=== PATIENT | female | born 1970 | race Two or more races ===

== ENCOUNTER 2018-03-07 11:25 | Observation (INO) | payer OTHER ==
[~2018-03-07] VITALS: Ht 157.5 cm; Wt 85.4 kg
--- NOTE | 2018-03-07 11:58 | PHYS DOC ---
Past Medical History Past Medical History: No Pertinent History Past Surgical History: No Surgical History Additional Information: 1 PPD Alcohol Use: Heavy Additional Information: 1 PINT DAILY, LAST DRINK 5 DAYS AGO Drug Use: None Adult General Chief Complaint Chief Complaint: CHEST PAIN HPI HPI Patient is a 47 year old female who presents with epigastric pain. Patient is currently an inmate at [facility]. She presents to the ER today accompanied by guards for evaluation of epigastric pain. Patient describes right upper quadrant and epigastric pain which she has been having for over 1 month. Symptoms do not seem to be worse with eating. The patient does have a known prior history of ulcers 2 in the past. She does not have coronary artery disease history. There are no aggravating or alleviating factors. She has no shortness of breath. No recent fever, chills, cough. Patient is having ongoing pain during the interview. She'll also noted to have a systolic blood pressure of 211. The patient states she has been told in the past that she had high blood pressure but has never been started on medications. Review of Systems Review of Systems Constitutional: Denies fever Eyes: Denies change in visual acuity HENT: Denies nasal congestion Respiratory: Denies cough or shortness of breath Cardiovascular: No additional information not addressed in HPI GI: as documented above : Denies dysuria Musculoskeletal: some back pain that is chronic Integument: Denies rash Neurologic: Denies headache Endocrine: Denies polyuria All other systems were reviewed and found to be within normal limits, except as documented in this note. Current Medications Current Medications Current Medications Medications (Trade) Dose Ordered Sig/Sury Start Time Stop Time Status Last Admin Dose Admin Acetaminophen (Tylenol) 650 mg PRN Q4HRS PRN 03/07/18 15:45 03/08/18 15:44 Aspirin (Children'S Aspirin) 324 mg 1X ONCE 03/07/18 12:15 03/07/18 12:16 DC 03/07/18 12:30 324 MG Famotidine (Pepcid Vial) 20 mg 1X ONCE 03/07/18 12:00 03/07/18 12:01 DC 03/07/18 12:48 20 MG Morphine Sulfate (Morphine Sulfate) 4 mg PRN Q2HR PRN 03/07/18 15:45 03/08/18 15:44 Multi-Ingredient Mouthwash/Gargle (Gi Cocktail) 20 ml 1X ONCE 03/07/18 12:00 03/07/18 12:01 DC 03/07/18 12:30 20 ML Nitroglycerin (Nitrostat) 0.4 mg PRN Q5MIN PRN 03/07/18 15:45 03/08/18 15:44 Ondansetron HCl (Zofran) 4 mg PRN Q8HRS PRN 03/07/18 15:45 03/07/18 15:51 DC Allergies Allergies Allergies Coded Allergies Type Severity Reaction Last Updated Verified No Known Drug Allergies 03/07/18 No Physical Exam Physical Exam Constitutional: Well developed, well nourished, no acute distress, non-toxic appearance HENT: Normocephalic, atraumatic, bilateral external ears normal, oropharynx moist Eyes: PERRLA, EOMI, conjunctiva normal Neck: Normal range of motion, no tenderness Cardiovascular:Heart rate regular rhythm, no murmur Lungs & Thorax: Bilateral breath sounds clear to auscultation Abdomen: Bowel sounds normal, soft, no tenderness Skin: Warm, dry, no erythema, no rash Back: No tenderness Extremities: No edema Neurologic: Alert and oriented X 3 Psychologic: Affect normal Current Patient Data Vital Signs Vital Signs Date Time Temp Pulse Resp B/P (MAP) Pulse Ox O2 Delivery O2 Flow Rate FiO2 03/07/18 13:03 82 24 198/96 (130) 98 Room Air 03/07/18 11:28 98.7 98.7 Lab Values Laboratory Tests Test 03/07/18 12:44 03/07/18 15:18 White Blood Count 10.0 x10^3/uL (4.0-11.0) Red Blood Count 5.40 x10^6/uL (3.50-5.40) Hemoglobin 16.2 g/dL (12.0-15.5) H Hematocrit 47.4 % (36.0-47.0) H Mean Corpuscular Volume 88 fL (79-100) Mean Corpuscular Hemoglobin 30 pg (25-35) Mean Corpuscular Hemoglobin Concent 34 g/dL (31-37) Red Cell Distribution Width 13.5 % (11.5-14.5) Platelet Count 323 x10^3/uL (140-400) Neutrophils (%) (Auto) 70 % (31-73) Lymphocytes (%) (Auto) 24 % (24-48) Monocytes (%) (Auto) 4 % (0-9) Eosinophils (%) (Auto) 1 % (0-3) Basophils (%) (Auto) 1 % (0-3) Neutrophils # (Auto) 7.0 x10^3uL (1.8-7.7) Lymphocytes # (Auto) 2.4 x10^3/uL (1.0-4.8) Monocytes # (Auto) 0.4 x10^3/uL (0.0-1.1) Eosinophils # (Auto) 0.1 x10^3/uL (0.0-0.7) Basophils # (Auto) 0.1 x10^3/uL (0.0-0.2) Sodium Level 140 mmol/L (136-145) Potassium Level 3.6 mmol/L (3.5-5.1) Chloride Level 103 mmol/L (98-107) Carbon Dioxide Level 28 mmol/L (21-32) Anion Gap 9 (6-14) Blood Urea Nitrogen 10 mg/dL (7-20) Creatinine 0.9 mg/dL (0.6-1.0) Estimated GFR (Cockcroft-Gault) 67.4 Glucose Level 168 mg/dL (70-99) H Calcium Level 9.3 mg/dL (8.5-10.1) Total Bilirubin 0.4 mg/dL (0.2-1.0) Direct Bilirubin 0.1 mg/dL (0.0-0.2) Aspartate Amino Transferase (AST) 37 U/L (15-37) Alanine Aminotransferase (ALT) 61 U/L (14-59) H Alkaline Phosphatase 86 U/L (46-116) Troponin I Quantitative < 0.017 ng/mL (0.000-0.055) WQ-Ran-W-Type Natriuretic Peptide 253 pg/mL (0-124) H Total Protein 7.5 g/dL (6.4-8.2) Albumin 3.7 g/dL (3.4-5.0) Lipase 165 U/L (73-393) Urine Collection Type Unknown Urine Color Yellow Urine Clarity Clear Urine pH 6.0 Urine Specific [place] 1.020 Urine Protein Negative mg/dL (NEG-TRACE) Urine Glucose (UA) Negative mg/dL (NEG) Urine Ketones (Stick) Negative mg/dL (NEG) Urine Blood Negative (NEG) Urine Nitrite Negative (NEG) Urine Bilirubin Negative (NEG) Urine Urobilinogen Dipstick 0.2 mg/dL (0.2 mg/dL) Urine Leukocyte Esterase Trace (NEG) Urine RBC 0 /HPF (0-2) Urine WBC 1-4 /HPF (0-4) Urine Squamous Epithelial Cells Mod /LPF Urine Bacteria Mod /HPF (0-FEW) Urine Mucus Mod /LPF Urine Trichomonas Present Laboratory Tests 03/07/18 12:44 Laboratory Tests 18 12:44 EKG EKG No STEMI Interpretation Time: 11:40 Radiology/Procedures Radiology/Procedures CXR: negative for acute findings RUQ US: FINDINGS:Pancreas is not visualized during bowel gas. IVC and aorta not visualized during bowel gas. Suboptimal visualization of liver which is enlarged measuring 18 cm with diffusely increased echogenicity and decreased through transmission. No gallstones, pericholecystic fluid or gallbladder wall thickening. CBD measures 3 mm in diameter and is within normal limits. Right kidney measures 10.8 cm in length without hydronephrosis. IMPRESSION: Suboptimal exam due to overlapping bowel gas. 1. No cholelithiasis or sonographic evidence of acute cholecystitis. 2. Mild hepatomegaly with hepatic steatosis. Course & Med Decision Making Course & Med Decision Making Pertinent Labs and Imaging studies reviewed. (See chart for details) 11:50: Patient is seen and examined. No acute distress. + mild upper abdomen and RUQ TTP. Abd labs with trop and RUQ US ordered. Pepcid, GI cocktail. EKG noted to have inverted T waves in lateral leads. ASA ordered. Patient was evaluated in the ER for chest pain. She was given a dose of morphine. Her pain did improve. She does not have known coronary artery disease. Her pain has been for several weeks and this is a patient who likely could be ruled out with a three-hour delta troponin. That said, her EKG was notable for diffuse T-wave inversions. Because of this, decision is made to admit the patient to trend troponins and request cardiology evaluation. The patient has never undergone stress testing in the past. She was given an aspirin in the ER. She had a secondary complaint of back pain which is acute on chronic and not new. Patient is from [facility] and is accompanied by a guard personnel. Chris Disclaimer Dragon Disclaimer This electronic medical record was generated, in whole or in part, using a voice recognition dictation system. Departure Departure Disposition: 09 ADMITTED INPATIENT Condition: GENARO HIDALGO DO Mar 07, 2018 11:58
[2018-03-07] MEDS ORDERED: LIDO:MAALOX 1:1 20 ML SINGLE DOSE. PO ONE (12:00)
[2018-03-07] MEDS ORDERED: FAMOTIDINE 20 MG/2 ML VIAL IVP ONE (12:00)
--- NOTE | 2018-03-07 12:10 | RAD ---
PROCEDURE: PORTABLE CHEST 1V CLINICAL INDICATION: BILATERAL CHEST PAIN, SOA X1 MONTH COMPARISON: None FINDINGS: No pneumothorax identified. Cardiac and mediastinal contours unremarkable. No pulmonary consolidation or acute airspace disease. No acute osseous abnormalities identified. IMPRESSION: No pulmonary consolidation or acute airspace disease. Electronically signed by: Orlin Cam DO (03/07/2018 12:06 PM) [facility]
[2018-03-07] MEDS ORDERED: ASPIRIN CHEWABLE 81 MG TABLET. PO ONE (12:15)
--- NOTE | 2018-03-07 12:18 | EKG ---
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
--- NOTE | 2018-03-07 12:37 | RAD ---
Indication:ruq/epigastric pain TECHNIQUE: Grayscale, color Doppler and spectral waveform is of the abdomen obtained. COMPARISON:None FINDINGS:Pancreas is not visualized during bowel gas. IVC and aorta not visualized during bowel gas. Suboptimal visualization of liver which is enlarged measuring 18 cm with diffusely increased echogenicity and decreased through transmission. No gallstones, pericholecystic fluid or gallbladder wall thickening. CBD measures 3 mm in diameter and is within normal limits. Right kidney measures 10.8 cm in length without hydronephrosis. IMPRESSION: Suboptimal exam due to overlapping bowel gas. 1. No cholelithiasis or sonographic evidence of acute cholecystitis. 2. Mild hepatomegaly with hepatic steatosis. Electronically signed by: Orlin Cam DO (03/07/2018 12:34 PM) [facility]
[2018-03-07 12:56] LABS: BASO # 0.1 x10^3/uL (0.0-0.2); BASO % 1 % (0-3); EOS # 0.1 x10^3/uL (0.0-0.7); EOS % 1 % (0-3); HEMATOCRIT 47.4 % (36.0-47.0); HEMOGLOBIN 16.2 g/dL (12.0-15.5); LYMPH # 2.4 x10^3/uL (1.0-4.8); LYMPH % 24 % (24-48); MEAN CORPUSCULAR HEMOGLOBIN 30 pg (25-35); MEAN CORPUSCULAR HGB CONC 34 g/dL (31-37); MEAN CORPUSCULAR VOLUME 88 fL (79-100); MONO # 0.4 x10^3/uL (0.0-1.1); MONO % 4 % (0-9); NEUT % 70 % (31-73); PLATELET COUNT 323 x10^3/uL (140-400); RED CELL DISTRIBUTION WIDTH 13.5 % (11.5-14.5)
[2018-03-07 13:08] LABS: CALCIUM 9.3 mg/dL (8.5-10.1); CREATININE 0.9 mg/dL (0.6-1.0); GFR 67.4; POTASSIUM 3.6 mmol/L (3.5-5.1)
[2018-03-07 13:12] LABS: ALBUMIN 3.7 g/dL (3.4-5.0); DIRECT BILIRUBIN 0.1 mg/dL (0.0-0.2); TOTAL BILIRUBIN 0.4 mg/dL (0.2-1.0); TOTAL PROTEIN 7.5 g/dL (6.4-8.2)
[2018-03-07] MEDS ORDERED: MORPHINE SULFATE 4 MG/ML VIAL. IV ONE (14:00)
[2018-03-07 15:29] LABS: BILIRUBIN,URINE NEGATIVE (NEG); CLARITY,URINE CLEAR; COLOR,URINE YELLOW; NITRITE,URINE NEGATIVE (NEG); PROTEIN,URINE NEGATIVE (NEG-TRACE); UROBILINOGEN,URINE 0.2 mg/dL (0.2 mg/dL)
[2018-03-07 15:39] LABS: RBC,URINE 0 /HPF (0-2)
[2018-03-07 15:40] LABS: BACTERIA,URINE MOD /HPF (0-FEW); SQUAMOUS EPITHELIAL CELL,UR MOD /LPF; TRICHOMONAS,URINE PRESENT
[2018-03-07] MEDS ORDERED: NITROGLYCERIN SUBLINGUAL 0.4 MG BOTTLE OF 25. SL PRN (15:45)
[2018-03-07] MEDS ORDERED: ONDANSETRON PF 4 MG/2 ML VIAL. IV PRN (15:45)
--- NOTE | 2018-03-07 18:13 | EKG ---
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
[2018-03-07 18:28] VITALS: BP 180/99
[2018-03-07 19:30] VITALS: BP 185/109
--- NOTE | 2018-03-07 19:35 | HP ---
ADMIT DATE: 03/07/2018 CHIEF COMPLAINT: Chest pain. HISTORY OF PRESENT ILLNESS: The patient is a pleasant 47-year-old female who is incarcerated. She does drugs. She drinks too much as well. She presents with chest pain from the [facility], rated at 9/10, worse with moving, better with sitting still. They gave her some extra medicine there, but it did not seem to help. Describes it as agonizing. I have discussed the case with ER physician. We are going to admit the patient and consult Cardiology. PAST MEDICAL HISTORY: Tobacco abuse and drug abuse and alcohol abuse. ALLERGIES: None. FAMILY HISTORY: Coronary artery disease. SOCIAL HISTORY: She drinks and smokes. She does do drugs too. MEDICATIONS: Reviewed. REVIEW OF SYSTEMS: GENERAL: No history of weight change, weakness or fevers. SKIN: No bruising, hair changes or rashes. EYES: No blurred, double or loss of vision. NOSE AND THROAT: No history of nosebleeds, hoarseness or sore throat. HEART: She complains of chest pain. LUNGS: Denies cough, hemoptysis, wheezing or shortness of breath. GASTROINTESTINAL: Denies changes in appetite, nausea, vomiting, diarrhea or constipation. GENITOURINARY: No history of frequency, urgency, hesitancy or nocturia. NEUROLOGIC: Denies history of numbness, tingling, tremor or weakness. PSYCHIATRIC: No history of panic, anxiety or depression. ENDOCRINE: No history of heat or cold intolerance, polyuria or polydipsia. EXTREMITIES: Denies muscle weakness, joint pain, pain on walking or stiffness. PHYSICAL EXAMINATION: VITAL SIGNS: Temperature 98, pulse 87, respirations 18, blood pressure 180/90. GENERAL: She is alert, cooperative. HEART: Distant S1, S2. LUNGS: Clear, but diminished. ABDOMEN: Soft, positive bowel sounds. EXTREMITIES: Trace edema. SKIN: No rashes. ENDOCRINE: No thyromegaly. LYMPHATICS: No cervical nodes. HEMATOPOIETIC: No bruising. PSYCHIATRIC: She is stable. LABORATORY DATA: Electrolytes are normal other than a glucose of 168, ALT is a little high at 61. BNP 253. ASSESSMENT AND PLAN: Chest pain, rule out coronary artery disease. The patient is being admitted. We will check serial enzymes, serial EKGs, cardiac monitoring. Consult Dr. Dozier. PT, OT, frequent labs. PROGNOSIS: Guarded. NIAL Zachary CHAPA DO DR: Charlie JOB#: [id number] / [id number]
[2018-03-07] MEDS: hydrALAZINE 20 MG/ML VIAL. IVP PRN (19:43)
[2018-03-07] MEDS: MORPHINE SULFATE 4 MG/ML VIAL. IV PRN (19:44)
[2018-03-07] MEDS: ACETAMINOPHEN 325 MG TABLET. PO PRN (23:19)
[2018-03-07 23:39] VITALS: BP 176/98
[2018-03-08 03:55] VITALS: BP 189/110
[2018-03-08] MEDS: hydrALAZINE 20 MG/ML VIAL. IVP PRN ×3 (04:05→20:16)
[2018-03-08 04:52] LABS: BASO # 0.1 x10^3/uL (0.0-0.2); BASO % 1 % (0-3); EOS # 0.2 x10^3/uL (0.0-0.7); EOS % 2 % (0-3); HEMATOCRIT 45.3 % (36.0-47.0); HEMOGLOBIN 15.3 g/dL (12.0-15.5); LYMPH # 2.6 x10^3/uL (1.0-4.8); LYMPH % 28 % (24-48); MEAN CORPUSCULAR HEMOGLOBIN 30 pg (25-35); MEAN CORPUSCULAR HGB CONC 34 g/dL (31-37); MEAN CORPUSCULAR VOLUME 88 fL (79-100); MONO # 0.6 x10^3/uL (0.0-1.1); MONO % 6 % (0-9); NEUT % 63 % (31-73); PLATELET COUNT 331 x10^3/uL (140-400); RED BLOOD COUNT 5.14 x10^6/uL (3.50-5.40); RED CELL DISTRIBUTION WIDTH 13.5 % (11.5-14.5); WHITE BLOOD COUNT 9.4 x10^3/uL (4.0-11.0)
[2018-03-08 05:09] LABS: GFR 59.7; POTASSIUM 3.5 mmol/L (3.5-5.1)
[2018-03-08] MEDS: ACETAMINOPHEN 325 MG TABLET. PO PRN ×3 (05:24→20:15)
[2018-03-08 07:00] VITALS: BP 177/79
[2018-03-08 10:23] VITALS: BP 190/98
[2018-03-08] MEDS: MORPHINE SULFATE 4 MG/ML VIAL. IV PRN (12:50)
--- NOTE | 2018-03-08 13:26 | PDOC ---
PROGRESS NOTES Chief Complaint Chief Complaint CP UTI History of Present Illness History of Present Illness PT seen and examined, spoke with nursing staff. Pt is incarcerated and being seen for CP with pain at 11/24. Pt has a Fhx of CAD. Pt is a current smoker. Pt also uses illicit drugs and drinks EtOH. Pt reports "I promise I will quit". Pt also has trichomoniasis with moderate bacteria found in urine. Vitals Vitals Vital Signs Date Time Temp Pulse Resp B/P (MAP) Pulse Ox O2 Delivery O2 Flow Rate FiO2 03/08/18 13:14 18 96 Room Air 03/08/18 10:29 190/98 03/08/18 10:23 98.4 101 98.4 Physical Exam General: Oriented X3, Cooperative, mild distress Heart: Regular rate, No murmurs Lungs: Clear Abdomen: Normal bowel sounds Extremities: No clubbing, No cyanosis, No edema, Normal pulses, No tenderness/ swelling Labs LABS Laboratory Tests Test 03/07/18 15:18 03/07/18 19:48 03/07/18 23:00 03/08/18 04:30 Urine Collection Type Unknown Urine Color Yellow Urine Clarity Clear Urine pH 6.0 Urine Specific [place] 1.020 Urine Protein Negative mg/dL (NEG-TRACE) Urine Glucose (UA) Negative mg/dL (NEG) Urine Ketones (Stick) Negative mg/dL (NEG) Urine Blood Negative (NEG) Urine Nitrite Negative (NEG) Urine Bilirubin Negative (NEG) Urine Urobilinogen Dipstick 0.2 mg/dL (0.2 mg/dL) Urine Leukocyte Esterase Trace (NEG) Urine RBC 0 /HPF (0-2) Urine WBC 1-4 /HPF (0-4) Urine Squamous Epithelial Cells Mod /LPF Urine Bacteria Mod /HPF (0-FEW) Urine Mucus Mod /LPF Urine Trichomonas Present Troponin I Quantitative < 0.017 ng/mL (0.000-0.055) 0.079 ng/mL (0.000-0.055) White Blood Count 9.4 x10^3/uL (4.0-11.0) Red Blood Count 5.14 x10^6/uL (3.50-5.40) Hemoglobin 15.3 g/dL (12.0-15.5) Hematocrit 45.3 % (36.0-47.0) Mean Corpuscular Volume 88 fL (79-100) Mean Corpuscular Hemoglobin 30 pg (25-35) Mean Corpuscular Hemoglobin Concent 34 g/dL (31-37) Red Cell Distribution Width 13.5 % (11.5-14.5) Platelet Count 331 x10^3/uL (140-400) Neutrophils (%) (Auto) 63 % (31-73) Lymphocytes (%) (Auto) 28 % (24-48) Monocytes (%) (Auto) 6 % (0-9) Eosinophils (%) (Auto) 2 % (0-3) Basophils (%) (Auto) 1 % (0-3) Neutrophils # (Auto) 6.0 x10^3uL (1.8-7.7) Lymphocytes # (Auto) 2.6 x10^3/uL (1.0-4.8) Monocytes # (Auto) 0.6 x10^3/uL (0.0-1.1) Eosinophils # (Auto) 0.2 x10^3/uL (0.0-0.7) Basophils # (Auto) 0.1 x10^3/uL (0.0-0.2) Sodium Level 138 mmol/L (136-145) Potassium Level 3.5 mmol/L (3.5-5.1) Chloride Level 101 mmol/L (98-107) Carbon Dioxide Level 27 mmol/L (21-32) Anion Gap 10 (6-14) Blood Urea Nitrogen 14 mg/dL (7-20) Creatinine 1.0 mg/dL (0.6-1.0) Estimated GFR (Cockcroft-Gault) 59.7 Glucose Level 119 mg/dL (70-99) Calcium Level 9.0 mg/dL (8.5-10.1) Review of Systems Review of Systems Reports CP Denies SOB Denies N/V Assessment and Plan Assessmemt and Plan Assessment: CP UTI Plan: Keep tomorrow for a cardiac stress test Cardiac monitoring Serial EKGs Serial Enzymes d/c disposition pending with cardiology approval Comment Review of Relevant I have reviewed the following items triston (where applicable) has been applied. Labs Laboratory Tests Test 03/07/18 12:44 03/07/18 15:18 03/07/18 19:48 03/07/18 23:00 White Blood Count 10.0 x10^3/uL (4.0-11.0) Red Blood Count 5.40 x10^6/uL (3.50-5.40) Hemoglobin 16.2 g/dL (12.0-15.5) Hematocrit 47.4 % (36.0-47.0) Mean Corpuscular Volume 88 fL (79-100) Mean Corpuscular Hemoglobin 30 pg (25-35) Mean Corpuscular Hemoglobin Concent 34 g/dL (31-37) Red Cell Distribution Width 13.5 % (11.5-14.5) Platelet Count 323 x10^3/uL (140-400) Neutrophils (%) (Auto) 70 % (31-73) Lymphocytes (%) (Auto) 24 % (24-48) Monocytes (%) (Auto) 4 % (0-9) Eosinophils (%) (Auto) 1 % (0-3) Basophils (%) (Auto) 1 % (0-3) Neutrophils # (Auto) 7.0 x10^3uL (1.8-7.7) Lymphocytes # (Auto) 2.4 x10^3/uL (1.0-4.8) Monocytes # (Auto) 0.4 x10^3/uL (0.0-1.1) Eosinophils # (Auto) 0.1 x10^3/uL (0.0-0.7) Basophils # (Auto) 0.1 x10^3/uL (0.0-0.2) Sodium Level 140 mmol/L (136-145) Potassium Level 3.6 mmol/L (3.5-5.1) Chloride Level 103 mmol/L (98-107) Carbon Dioxide Level 28 mmol/L (21-32) Anion Gap 9 (6-14) Blood Urea Nitrogen 10 mg/dL (7-20) Creatinine 0.9 mg/dL (0.6-1.0) Estimated GFR (Cockcroft-Gault) 67.4 Glucose Level 168 mg/dL (70-99) Calcium Level 9.3 mg/dL (8.5-10.1) Total Bilirubin 0.4 mg/dL (0.2-1.0) Direct Bilirubin 0.1 mg/dL (0.0-0.2) Aspartate Amino Transf (AST/SGOT) 37 U/L (15-37) Alanine Aminotransferase (ALT/SGPT) 61 U/L (14-59) Alkaline Phosphatase 86 U/L (46-116) Troponin I Quantitative < 0.017 ng/mL (0.000-0.055) < 0.017 ng/mL (0.000-0.055) 0.079 ng/mL (0.000-0.055) IK-Qpx-P-Type Natriuretic Peptide 253 pg/mL (0-124) Total Protein 7.5 g/dL (6.4-8.2) Albumin 3.7 g/dL (3.4-5.0) Lipase 165 U/L (73-393) Urine Collection Type Unknown Urine Color Yellow Urine Clarity Clear Urine pH 6.0 Urine Specific [place] 1.020 Urine Protein Negative mg/dL (NEG-TRACE) Urine Glucose (UA) Negative mg/dL (NEG) Urine Ketones (Stick) Negative mg/dL (NEG) Urine Blood Negative (NEG) Urine Nitrite Negative (NEG) Urine Bilirubin Negative (NEG) Urine Urobilinogen Dipstick 0.2 mg/dL (0.2 mg/dL) Urine Leukocyte Esterase Trace (NEG) Urine RBC 0 /HPF (0-2) Urine WBC 1-4 /HPF (0-4) Urine Squamous Epithelial Cells Mod /LPF Urine Bacteria Mod /HPF (0-FEW) Urine Mucus Mod /LPF Urine Trichomonas Present Test 03/08/18 04:30 White Blood Count 9.4 x10^3/uL (4.0-11.0) Red Blood Count 5.14 x10^6/uL (3.50-5.40) Hemoglobin 15.3 g/dL (12.0-15.5) Hematocrit 45.3 % (36.0-47.0) Mean Corpuscular Volume 88 fL (79-100) Mean Corpuscular Hemoglobin 30 pg (25-35) Mean Corpuscular Hemoglobin Concent 34 g/dL (31-37) Red Cell Distribution Width 13.5 % (11.5-14.5) Platelet Count 331 x10^3/uL (140-400) Neutrophils (%) (Auto) 63 % (31-73) Lymphocytes (%) (Auto) 28 % (24-48) Monocytes (%) (Auto) 6 % (0-9) Eosinophils (%) (Auto) 2 % (0-3) Basophils (%) (Auto) 1 % (0-3) Neutrophils # (Auto) 6.0 x10^3uL (1.8-7.7) Lymphocytes # (Auto) 2.6 x10^3/uL (1.0-4.8) Monocytes # (Auto) 0.6 x10^3/uL (0.0-1.1) Eosinophils # (Auto) 0.2 x10^3/uL (0.0-0.7) Basophils # (Auto) 0.1 x10^3/uL (0.0-0.2) Sodium Level 138 mmol/L (136-145) Potassium Level 3.5 mmol/L (3.5-5.1) Chloride Level 101 mmol/L (98-107) Carbon Dioxide Level 27 mmol/L (21-32) Anion Gap 10 (6-14) Blood Urea Nitrogen 14 mg/dL (7-20) Creatinine 1.0 mg/dL (0.6-1.0) Estimated GFR (Cockcroft-Gault) 59.7 Glucose Level 119 mg/dL (70-99) Calcium Level 9.0 mg/dL (8.5-10.1) Laboratory Tests Test 03/07/18 15:18 03/07/18 19:48 03/07/18 23:00 03/08/18 04:30 Urine Collection Type Unknown Urine Color Yellow Urine Clarity Clear Urine pH 6.0 Urine Specific [place] 1.020 Urine Protein Negative mg/dL (NEG-TRACE) Urine Glucose (UA) Negative mg/dL (NEG) Urine Ketones (Stick) Negative mg/dL (NEG) Urine Blood Negative (NEG) Urine Nitrite Negative (NEG) Urine Bilirubin Negative (NEG) Urine Urobilinogen Dipstick 0.2 mg/dL (0.2 mg/dL) Urine Leukocyte Esterase Trace (NEG) Urine RBC 0 /HPF (0-2) Urine WBC 1-4 /HPF (0-4) Urine Squamous Epithelial Cells Mod /LPF Urine Bacteria Mod /HPF (0-FEW) Urine Mucus Mod /LPF Urine Trichomonas Present Troponin I Quantitative < 0.017 ng/mL (0.000-0.055) 0.079 ng/mL (0.000-0.055) White Blood Count 9.4 x10^3/uL (4.0-11.0) Red Blood Count 5.14 x10^6/uL (3.50-5.40) Hemoglobin 15.3 g/dL (12.0-15.5) Hematocrit 45.3 % (36.0-47.0) Mean Corpuscular Volume 88 fL (79-100) Mean Corpuscular Hemoglobin 30 pg (25-35) Mean Corpuscular Hemoglobin Concent 34 g/dL (31-37) Red Cell Distribution Width 13.5 % (11.5-14.5) Platelet Count 331 x10^3/uL (140-400) Neutrophils (%) (Auto) 63 % (31-73) Lymphocytes (%) (Auto) 28 % (24-48) Monocytes (%) (Auto) 6 % (0-9) Eosinophils (%) (Auto) 2 % (0-3) Basophils (%) (Auto) 1 % (0-3) Neutrophils # (Auto) 6.0 x10^3uL (1.8-7.7) Lymphocytes # (Auto) 2.6 x10^3/uL (1.0-4.8) Monocytes # (Auto) 0.6 x10^3/uL (0.0-1.1) Eosinophils # (Auto) 0.2 x10^3/uL (0.0-0.7) Basophils # (Auto) 0.1 x10^3/uL (0.0-0.2) Sodium Level 138 mmol/L (136-145) Potassium Level 3.5 mmol/L (3.5-5.1) Chloride Level 101 mmol/L (98-107) Carbon Dioxide Level 27 mmol/L (21-32) Anion Gap 10 (6-14) Blood Urea Nitrogen 14 mg/dL (7-20) Creatinine 1.0 mg/dL (0.6-1.0) Estimated GFR (Cockcroft-Gault) 59.7 Glucose Level 119 mg/dL (70-99) Calcium Level 9.0 mg/dL (8.5-10.1) Medications Current Medications Famotidine (Pepcid Vial) 20 mg 1X ONCE IVP Last administered on 03/07/18at 12: 48; Start 03/07/18 at 12:00; Stop 03/07/18 at 12:01; Status DC Multi-Ingredient Mouthwash/Gargle (Gi Cocktail) 20 ml 1X ONCE PO Last administered on 03/07/18at 12:30; Start 03/07/18 at 12:00; Stop 03/07/18 at 12 :01; Status DC Aspirin (Children'S Aspirin) 324 mg 1X ONCE PO Last administered on at 12:30; Start 03/07/18 at 12:15; Stop 03/07/18 at 12:16; Status DC Morphine Sulfate (Morphine Sulfate) 6 mg 1X ONCE IV Last administered on 03/07at 15:24; Start 03/07/18 at 14:00; Stop 03/07/18 at 14:01; Status DC Ondansetron HCl (Zofran) 4 mg PRN Q8HRS PRN IV NAUSEA/VOMITING; Start at 15:45; Stop 03/07/18 at 15:51; Status DC Morphine Sulfate (Morphine Sulfate) 4 mg PRN Q2HR PRN IV PAIN Last administered on 03/08/18at 12:50; Start 03/07/18 at 15:45; Stop 03/08/18 at 15 :44 Acetaminophen (Tylenol) 650 mg PRN Q4HRS PRN PO FEVER Last administered on at 12:50; Start 03/07/18 at 15:45; Stop 03/08/18 at 15:44 Nitroglycerin (Nitrostat) 0.4 mg PRN Q5MIN PRN SL CHEST PAIN; Start 03/07/18 at 15:45; Stop 03/08/18 at 15:44 Hydralazine HCl (Apresoline Inj) 10 mg PRN Q8HRS PRN IVP ELEVATED BP, SEE COMMENTS Last administered on 03/08/18at 10:29; Start 03/07/18 at 18:00 Vitals/I & O Vital Sign - Last 24 Hours 03/07/18 03/07/18 03/07/18 03/07/18 13:33 14:03 14:33 15:19 Pulse 78 78 78 Resp 20 24 20 B/P (MAP) 211/129 (156) 216/121 (152) 191/89 (123) 193/120 (144) Pulse Ox 98 96 98 O2 Delivery Room Air Room Air Room Air Room Air 12/22/18 12/22/18 12/22/18 12/22/18 15:49 15:54 16:19 16:49 Pulse 80 80 102 Resp 22 22 B/P (MAP) 206/114 (144) 202/110 (140) 219/125 (156) Pulse Ox 96 96 94 96 O2 Delivery Room Air Room Air Room Air Room Air 03/07/18 03/07/18 03/07/18 03/07/18 17:19 17:35 17:49 18:28 Temp 98.7 98.7 Pulse 110 82 88 87 Resp B/P (MAP) 243/143 (176) 182/99 (126) 180/102 (128) 180/99 (126) Pulse Ox 95 97 97 96 O2 Delivery Room Air Room Air Room Air Room Air 03/07/18 03/07/18 03/07/18 03/07/18 19:30 19:43 19:44 20:00 Temp 98.0 98.0 Pulse 80 87 Resp B/P (MAP) 185/109 (134) 180/99 Pulse Ox 96 O2 Delivery Room Air Room Air Room Air 03/07/18 03/08/18 03/08/18 03/08/18 23:39 03:55 04:05 07:00 Temp 98.0 98.5 98.5 98.0 98.5 98.5 Pulse 120 103 113 Resp B/P (MAP) 176/98 (124) 189/110 (136) 189/110 177/79 (111) Pulse Ox 99 97 98 O2 Delivery Room Air Room Air Room Air 03/08/18 03/08/18 03/08/18 03/08/18 07:54 10:23 10:29 12:50 Temp 98.4 98.4 Pulse 101 Resp 18 B/P (MAP) 190/98 (128) 190/98 Pulse Ox 96 96 O2 Delivery Room Air Room Air Room Air 03/08/18 13:14 Resp 18 Pulse Ox 96 O2 Delivery Room Air Intake and Output 03/07/18 03/07/18 03/08/18 15:01 23:01 07:01 Intake Total 360 ml Balance 360 ml JUWAN CHAPA III DO Mar 08, 2018 13:26
[2018-03-08 14:26] VITALS: BP 177/70
--- NOTE | 2018-03-08 17:26 | PDOC2 ---
CONSULT Date of Consult Date of Consult DATE: 03/08/18 TIME: 17:19 Reason for Consult Reason for Consult: Chest pain Referring Physician Referring Physician: Dr. Zimmer Identification/Chief Complaint Chief Complaint Abdominal and chest pain Source Source: Patient History of Present Illness Reason for Visit: The patient is a 47-year-old female who reported several days of upper abdominal and chest discomfort. This has been present for over a month but has increased in the last several days. She does have a history of peptic ulcer disease with his been largely untreated recently. Her EKG shows a sinus rhythm with nonspecific ST-T wave changes. 2 troponins were normal but for with minimally elevated 0.079. Patient also was severely hypertensive on admission with a systolic pressure of 211. Ultrasound of the abdomen shows mild hepatomegaly. Chest x-ray shows no acute changes. The patient is more comfortable today. Past Medical History Cardiovascular: HTN Pulmonary: COPD GI: Peptic Ulcer disease Past Surgical History Past Surgical History: No pertinent history Family History Family History: Heart Disease Social History Social History The patient is an inmate at one of the local jails. 1 pack per day ALCOHOL: heavy Drugs: Other Current Problem List Problem List Problems Medical Problems: (1) Chest pain Status: Acute (2) Hypertension Status: Acute Current Medications Current Medications Current Medications Famotidine (Pepcid Vial) 20 mg 1X ONCE IVP Last administered on 03/07/18at 12: 48; Start 03/07/18 at 12:00; Stop 03/07/18 at 12:01; Status DC Multi-Ingredient Mouthwash/Gargle (Gi Cocktail) 20 ml 1X ONCE PO Last administered on 03/07/18at 12:30; Start 03/07/18 at 12:00; Stop 03/07/18 at 12 :01; Status DC Aspirin (Children'S Aspirin) 324 mg 1X ONCE PO Last administered on at 12:30; Start 03/07/18 at 12:15; Stop 03/07/18 at 12:16; Status DC Morphine Sulfate (Morphine Sulfate) 6 mg 1X ONCE IV Last administered on 03/07at 15:24; Start 03/07/18 at 14:00; Stop 03/07/18 at 14:01; Status DC Ondansetron HCl (Zofran) 4 mg PRN Q8HRS PRN IV NAUSEA/VOMITING; Start at 15:45; Stop 03/07/18 at 15:51; Status DC Morphine Sulfate (Morphine Sulfate) 4 mg PRN Q2HR PRN IV PAIN Last administered on 03/08/18at 12:50; Start 03/07/18 at 15:45; Stop 03/08/18 at 15 :44; Status DC Acetaminophen (Tylenol) 650 mg PRN Q4HRS PRN PO FEVER Last administered on at 12:50; Start 03/07/18 at 15:45; Stop 03/08/18 at 15:44; Status DC Nitroglycerin (Nitrostat) 0.4 mg PRN Q5MIN PRN SL CHEST PAIN; Start 03/07/18 at 15:45; Stop 03/08/18 at 15:44; Status DC Hydralazine HCl (Apresoline Inj) 10 mg PRN Q8HRS PRN IVP ELEVATED BP, SEE COMMENTS Last administered on 03/08/18at 10:29; Start 03/07/18 at 18:00 Allergies Allergies: Coded Allergies: No Known Drug Allergies (Unverified , 03/07/18) ROS Cardiovascular: yes Chest Pain Gastrointestinal: Yes Abdominal Pain Physical Exam General: mild distress HEENT: Atraumatic Lungs: Clear to auscultation Heart: Regular rate Abdomen: Normal bowel sounds Vitals VITALS Vital Signs Date Time Temp Pulse Resp B/P (MAP) Pulse Ox O2 Delivery O2 Flow Rate FiO2 03/08/18 14:26 98.3 112 20 177/70 (105) 98 Room Air 98.3 Labs Labs Laboratory Tests Test 03/07/18 12:44 03/07/18 15:18 03/07/18 19:48 03/07/18 23:00 White Blood Count 10.0 x10^3/uL (4.0-11.0) Red Blood Count 5.40 x10^6/uL (3.50-5.40) Hemoglobin 16.2 g/dL (12.0-15.5) Hematocrit 47.4 % (36.0-47.0) Mean Corpuscular Volume 88 fL (79-100) Mean Corpuscular Hemoglobin 30 pg (25-35) Mean Corpuscular Hemoglobin Concent 34 g/dL (31-37) Red Cell Distribution Width 13.5 % (11.5-14.5) Platelet Count 323 x10^3/uL (140-400) Neutrophils (%) (Auto) 70 % (31-73) Lymphocytes (%) (Auto) 24 % (24-48) Monocytes (%) (Auto) 4 % (0-9) Eosinophils (%) (Auto) 1 % (0-3) Basophils (%) (Auto) 1 % (0-3) Neutrophils # (Auto) 7.0 x10^3uL (1.8-7.7) Lymphocytes # (Auto) 2.4 x10^3/uL (1.0-4.8) Monocytes # (Auto) 0.4 x10^3/uL (0.0-1.1) Eosinophils # (Auto) 0.1 x10^3/uL (0.0-0.7) Basophils # (Auto) 0.1 x10^3/uL (0.0-0.2) Sodium Level 140 mmol/L (136-145) Potassium Level 3.6 mmol/L (3.5-5.1) Chloride Level 103 mmol/L (98-107) Carbon Dioxide Level 28 mmol/L (21-32) Anion Gap 9 (6-14) Blood Urea Nitrogen 10 mg/dL (7-20) Creatinine 0.9 mg/dL (0.6-1.0) Estimated GFR (Cockcroft-Gault) 67.4 Glucose Level 168 mg/dL (70-99) Calcium Level 9.3 mg/dL (8.5-10.1) Total Bilirubin 0.4 mg/dL (0.2-1.0) Direct Bilirubin 0.1 mg/dL (0.0-0.2) Aspartate Amino Transf (AST/SGOT) 37 U/L (15-37) Alanine Aminotransferase (ALT/SGPT) 61 U/L (14-59) Alkaline Phosphatase 86 U/L (46-116) Troponin I Quantitative < 0.017 ng/mL (0.000-0.055) < 0.017 ng/mL (0.000-0.055) 0.079 ng/mL (0.000-0.055) OB-Yfn-J-Type Natriuretic Peptide 253 pg/mL (0-124) Total Protein 7.5 g/dL (6.4-8.2) Albumin 3.7 g/dL (3.4-5.0) Lipase 165 U/L (73-393) Urine Collection Type Unknown Urine Color Yellow Urine Clarity Clear Urine pH 6.0 Urine Specific Bowler 1.020 Urine Protein Negative mg/dL (NEG-TRACE) Urine Glucose (UA) Negative mg/dL (NEG) Urine Ketones (Stick) Negative mg/dL (NEG) Urine Blood Negative (NEG) Urine Nitrite Negative (NEG) Urine Bilirubin Negative (NEG) Urine Urobilinogen Dipstick 0.2 mg/dL (0.2 mg/dL) Urine Leukocyte Esterase Trace (NEG) Urine RBC 0 /HPF (0-2) Urine WBC 1-4 /HPF (0-4) Urine Squamous Epithelial Cells Mod /LPF Urine Bacteria Mod /HPF (0-FEW) Urine Mucus Mod /LPF Urine Trichomonas Present Test 03/08/18 04:30 White Blood Count 9.4 x10^3/uL (4.0-11.0) Red Blood Count 5.14 x10^6/uL (3.50-5.40) Hemoglobin 15.3 g/dL (12.0-15.5) Hematocrit 45.3 % (36.0-47.0) Mean Corpuscular Volume 88 fL (79-100) Mean Corpuscular Hemoglobin 30 pg (25-35) Mean Corpuscular Hemoglobin Concent 34 g/dL (31-37) Red Cell Distribution Width 13.5 % (11.5-14.5) Platelet Count 331 x10^3/uL (140-400) Neutrophils (%) (Auto) 63 % (31-73) Lymphocytes (%) (Auto) 28 % (24-48) Monocytes (%) (Auto) 6 % (0-9) Eosinophils (%) (Auto) 2 % (0-3) Basophils (%) (Auto) 1 % (0-3) Neutrophils # (Auto) 6.0 x10^3uL (1.8-7.7) Lymphocytes # (Auto) 2.6 x10^3/uL (1.0-4.8) Monocytes # (Auto) 0.6 x10^3/uL (0.0-1.1) Eosinophils # (Auto) 0.2 x10^3/uL (0.0-0.7) Basophils # (Auto) 0.1 x10^3/uL (0.0-0.2) Sodium Level 138 mmol/L (136-145) Potassium Level 3.5 mmol/L (3.5-5.1) Chloride Level 101 mmol/L (98-107) Carbon Dioxide Level 27 mmol/L (21-32) Anion Gap 10 (6-14) Blood Urea Nitrogen 14 mg/dL (7-20) Creatinine 1.0 mg/dL (0.6-1.0) Estimated GFR (Cockcroft-Gault) 59.7 Glucose Level 119 mg/dL (70-99) Calcium Level 9.0 mg/dL (8.5-10.1) Laboratory Tests Test 03/07/18 19:48 03/07/18 23:00 03/08/18 04:30 Troponin I Quantitative < 0.017 ng/mL (0.000-0.055) 0.079 ng/mL (0.000-0.055) White Blood Count 9.4 x10^3/uL (4.0-11.0) Red Blood Count 5.14 x10^6/uL (3.50-5.40) Hemoglobin 15.3 g/dL (12.0-15.5) Hematocrit 45.3 % (36.0-47.0) Mean Corpuscular Volume 88 fL (79-100) Mean Corpuscular Hemoglobin 30 pg (25-35) Mean Corpuscular Hemoglobin Concent 34 g/dL (31-37) Red Cell Distribution Width 13.5 % (11.5-14.5) Platelet Count 331 x10^3/uL (140-400) Neutrophils (%) (Auto) 63 % (31-73) Lymphocytes (%) (Auto) 28 % (24-48) Monocytes (%) (Auto) 6 % (0-9) Eosinophils (%) (Auto) 2 % (0-3) Basophils (%) (Auto) 1 % (0-3) Neutrophils # (Auto) 6.0 x10^3uL (1.8-7.7) Lymphocytes # (Auto) 2.6 x10^3/uL (1.0-4.8) Monocytes # (Auto) 0.6 x10^3/uL (0.0-1.1) Eosinophils # (Auto) 0.2 x10^3/uL (0.0-0.7) Basophils # (Auto) 0.1 x10^3/uL (0.0-0.2) Sodium Level 138 mmol/L (136-145) Potassium Level 3.5 mmol/L (3.5-5.1) Chloride Level 101 mmol/L (98-107) Carbon Dioxide Level 27 mmol/L (21-32) Anion Gap 10 (6-14) Blood Urea Nitrogen 14 mg/dL (7-20) Creatinine 1.0 mg/dL (0.6-1.0) Estimated GFR (Cockcroft-Gault) 59.7 Glucose Level 119 mg/dL (70-99) Calcium Level 9.0 mg/dL (8.5-10.1) Images Images Chest x-ray shows no acute changes. Ultrasound the abdomen showed mild hepatomegaly. Assessment/Plan Assessment/Plan 1. Abdominal discomfort. History of peptic ulcer disease. Heavy use of alcohol. Abdominal ultrasound showed mild hepatomegaly. We'll continue on present treatments as per the primary service. 2. Accelerated hypertension. On antihypertensive medication started and will monitor. 3. Some chest discomfort as well. Nonspecific ST-T wave changes on EKG. Minimally elevated troponin at 0.079. We'll continue to monitor. MPI testing in the morning. 4. Alcohol and drug abuse as above. Thank you for allowing us to participate in the care of your patient. NELIDA LIM MD Mar 08, 2018 17:26
[2018-03-08] MEDS: LISINOPRIL 10 MG TABLET PO SCH (18:02)
[2018-03-08 19:45] VITALS: BP 198/95
[2018-03-08] MEDS: FAMOTIDINE 20 MG TABLET. PO SCH (20:15)
[2018-03-08 23:10] VITALS: BP 153/70
[2018-03-09 03:05] VITALS: BP 149/67
[2018-03-09] MEDS: ACETAMINOPHEN 325 MG TABLET. PO PRN (03:17)
[2018-03-09] MEDS ORDERED: NITROGLYCERIN SUBLINGUAL 0.4 MG BOTTLE OF 25. SL ONE (07:24)
[2018-03-09 07:30] VITALS: BP 150/68
[2018-03-09] MEDS ORDERED: NITROGLYCERIN SUBLINGUAL 0.4 MG BOTTLE OF 25. SL PRN (07:30)
[2018-03-09 07:42] LABS: MAGNESIUM 2.2 mg/dL (1.8-2.4)
[2018-03-09 07:45] LABS: CHOLESTEROL/HDL RATIO 2.9
--- NOTE | 2018-03-09 08:04 | PDOC ---
PROGRESS NOTES Chief Complaint Chief Complaint CP UTI History of Present Illness History of Present Illness Ms Harvey is a pleasant 47-year-old female who is currently incarcerated. PMHx IVDA, ETOH abuse., smoker She presents with chest pain from the shelter, rated at 9 /10, worse with moving, better with sitting still. Found with SBP > 210mmHg, treated for HTN emergency and trichomas infection, found with enlarged liver with fatty infiltration on abdominal US. Seen by cardiology after troponin peak 0.79, going for MPI today. Seen and examined today. She is feeling a little better after pepcid. She is asking for a diet. A/P: Trichomonas - metrogel vaginal Chest pain - atypical - will get MPI, treat as GERD otherwise Polysubstance abuse - counseled on cessation of ETOH, smoking, drug abuse Vitals Vitals Vital Signs Date Time Temp Pulse Resp B/P (MAP) Pulse Ox O2 Delivery O2 Flow Rate FiO2 03/09/18 07:29 110 152/73 03/09/18 03:05 99.1 20 97 Room Air 99.1 Physical Exam General: mild distress Heart: Regular rate Lungs: Clear Abdomen: Normal bowel sounds Extremities: No clubbing, No cyanosis, No edema, Normal pulses, No tenderness/ swelling Labs LABS Laboratory Tests Test 03/09/18 06:50 Magnesium Level 2.2 mg/dL (1.8-2.4) Triglycerides Level 69 mg/dL (0-150) Cholesterol Level 155 mg/dL (0-200) LDL Cholesterol, Calculated 87 mg/dL (0-100) VLDL Cholesterol, Calculated 14 mg/dL (0-40) Non-HDL Cholesterol Calculated 101 mg/dL (0-129) HDL Cholesterol 54 mg/dL (40-60) Cholesterol/HDL Ratio 2.9 Assessment and Plan Assessmemt and Plan Problems Medical Problems: (1) Chest pain Status: Acute (2) Hypertension Status: Acute Comment Review of Relevant I have reviewed the following items triston (where applicable) has been applied. Labs Laboratory Tests Test 03/07/18 12:44 03/07/18 15:18 03/07/18 19:48 03/07/18 23:00 White Blood Count 10.0 x10^3/uL (4.0-11.0) Red Blood Count 5.40 x10^6/uL (3.50-5.40) Hemoglobin 16.2 g/dL (12.0-15.5) Hematocrit 47.4 % (36.0-47.0) Mean Corpuscular Volume 88 fL (79-100) Mean Corpuscular Hemoglobin 30 pg (25-35) Mean Corpuscular Hemoglobin Concent 34 g/dL (31-37) Red Cell Distribution Width 13.5 % (11.5-14.5) Platelet Count 323 x10^3/uL (140-400) Neutrophils (%) (Auto) 70 % (31-73) Lymphocytes (%) (Auto) 24 % (24-48) Monocytes (%) (Auto) 4 % (0-9) Eosinophils (%) (Auto) 1 % (0-3) Basophils (%) (Auto) 1 % (0-3) Neutrophils # (Auto) 7.0 x10^3uL (1.8-7.7) Lymphocytes # (Auto) 2.4 x10^3/uL (1.0-4.8) Monocytes # (Auto) 0.4 x10^3/uL (0.0-1.1) Eosinophils # (Auto) 0.1 x10^3/uL (0.0-0.7) Basophils # (Auto) 0.1 x10^3/uL (0.0-0.2) Sodium Level 140 mmol/L (136-145) Potassium Level 3.6 mmol/L (3.5-5.1) Chloride Level 103 mmol/L (98-107) Carbon Dioxide Level 28 mmol/L (21-32) Anion Gap 9 (6-14) Blood Urea Nitrogen 10 mg/dL (7-20) Creatinine 0.9 mg/dL (0.6-1.0) Estimated GFR (Cockcroft-Gault) 67.4 Glucose Level 168 mg/dL (70-99) Calcium Level 9.3 mg/dL (8.5-10.1) Total Bilirubin 0.4 mg/dL (0.2-1.0) Direct Bilirubin 0.1 mg/dL (0.0-0.2) Aspartate Amino Transf (AST/SGOT) 37 U/L (15-37) Alanine Aminotransferase (ALT/SGPT) 61 U/L (14-59) Alkaline Phosphatase 86 U/L (46-116) Troponin I Quantitative < 0.017 ng/mL (0.000-0.055) < 0.017 ng/mL (0.000-0.055) 0.079 ng/mL (0.000-0.055) ZX-Muk-O-Type Natriuretic Peptide 253 pg/mL (0-124) Total Protein 7.5 g/dL (6.4-8.2) Albumin 3.7 g/dL (3.4-5.0) Lipase 165 U/L (73-393) Urine Collection Type Unknown Urine Color Yellow Urine Clarity Clear Urine pH 6.0 Urine Specific [place] 1.020 Urine Protein Negative mg/dL (NEG-TRACE) Urine Glucose (UA) Negative mg/dL (NEG) Urine Ketones (Stick) Negative mg/dL (NEG) Urine Blood Negative (NEG) Urine Nitrite Negative (NEG) Urine Bilirubin Negative (NEG) Urine Urobilinogen Dipstick 0.2 mg/dL (0.2 mg/dL) Urine Leukocyte Esterase Trace (NEG) Urine RBC 0 /HPF (0-2) Urine WBC 1-4 /HPF (0-4) Urine Squamous Epithelial Cells Mod /LPF Urine Bacteria Mod /HPF (0-FEW) Urine Mucus Mod /LPF Urine Trichomonas Present Test 03/08/18 04:30 03/09/18 06:50 White Blood Count 9.4 x10^3/uL (4.0-11.0) Red Blood Count 5.14 x10^6/uL (3.50-5.40) Hemoglobin 15.3 g/dL (12.0-15.5) Hematocrit 45.3 % (36.0-47.0) Mean Corpuscular Volume 88 fL (79-100) Mean Corpuscular Hemoglobin 30 pg (25-35) Mean Corpuscular Hemoglobin Concent 34 g/dL (31-37) Red Cell Distribution Width 13.5 % (11.5-14.5) Platelet Count 331 x10^3/uL (140-400) Neutrophils (%) (Auto) 63 % (31-73) Lymphocytes (%) (Auto) 28 % (24-48) Monocytes (%) (Auto) 6 % (0-9) Eosinophils (%) (Auto) 2 % (0-3) Basophils (%) (Auto) 1 % (0-3) Neutrophils # (Auto) 6.0 x10^3uL (1.8-7.7) Lymphocytes # (Auto) 2.6 x10^3/uL (1.0-4.8) Monocytes # (Auto) 0.6 x10^3/uL (0.0-1.1) Eosinophils # (Auto) 0.2 x10^3/uL (0.0-0.7) Basophils # (Auto) 0.1 x10^3/uL (0.0-0.2) Sodium Level 138 mmol/L (136-145) Potassium Level 3.5 mmol/L (3.5-5.1) Chloride Level 101 mmol/L (98-107) Carbon Dioxide Level 27 mmol/L (21-32) Anion Gap 10 (6-14) Blood Urea Nitrogen 14 mg/dL (7-20) Creatinine 1.0 mg/dL (0.6-1.0) Estimated GFR (Cockcroft-Gault) 59.7 Glucose Level 119 mg/dL (70-99) Calcium Level 9.0 mg/dL (8.5-10.1) Magnesium Level 2.2 mg/dL (1.8-2.4) Triglycerides Level 69 mg/dL (0-150) Cholesterol Level 155 mg/dL (0-200) LDL Cholesterol, Calculated 87 mg/dL (0-100) VLDL Cholesterol, Calculated 14 mg/dL (0-40) Non-HDL Cholesterol Calculated 101 mg/dL (0-129) HDL Cholesterol 54 mg/dL (40-60) Cholesterol/HDL Ratio 2.9 Laboratory Tests Test 03/09/18 06:50 Magnesium Level 2.2 mg/dL (1.8-2.4) Triglycerides Level 69 mg/dL (0-150) Cholesterol Level 155 mg/dL (0-200) LDL Cholesterol, Calculated 87 mg/dL (0-100) VLDL Cholesterol, Calculated 14 mg/dL (0-40) Non-HDL Cholesterol Calculated 101 mg/dL (0-129) HDL Cholesterol 54 mg/dL (40-60) Cholesterol/HDL Ratio 2.9 Medications Current Medications Famotidine (Pepcid Vial) 20 mg 1X ONCE IVP Last administered on 03/07/18at 12: 48; Start 03/07/18 at 12:00; Stop 03/07/18 at 12:01; Status DC Multi-Ingredient Mouthwash/Gargle (Gi Cocktail) 20 ml 1X ONCE PO Last administered on 03/07/18at 12:30; Start 03/07/18 at 12:00; Stop 03/07/18 at 12 :01; Status DC Aspirin (Children'S Aspirin) 324 mg 1X ONCE PO Last administered on at 12:30; Start 03/07/18 at 12:15; Stop 03/07/18 at 12:16; Status DC Morphine Sulfate (Morphine Sulfate) 6 mg 1X ONCE IV Last administered on 03/07at 15:24; Start 03/07/18 at 14:00; Stop 03/07/18 at 14:01; Status DC Ondansetron HCl (Zofran) 4 mg PRN Q8HRS PRN IV NAUSEA/VOMITING; Start at 15:45; Stop 03/07/18 at 15:51; Status DC Morphine Sulfate (Morphine Sulfate) 4 mg PRN Q2HR PRN IV PAIN Last administered on 03/08/18at 12:50; Start 03/07/18 at 15:45; Stop 03/08/18 at 15 :44; Status DC Acetaminophen (Tylenol) 650 mg PRN Q4HRS PRN PO FEVER Last administered on at 12:50; Start 03/07/18 at 15:45; Stop 03/08/18 at 15:44; Status DC Nitroglycerin (Nitrostat) 0.4 mg PRN Q5MIN PRN SL CHEST PAIN; Start 03/07/18 at 15:45; Stop 03/08/18 at 15:44; Status DC Hydralazine HCl (Apresoline Inj) 10 mg PRN Q8HRS PRN IVP ELEVATED BP, SEE COMMENTS Last administered on 03/08/18at 20:16; Start 03/07/18 at 18:00 Lisinopril (Prinivil) 10 mg DAILY PO Last administered on 03/08/18at 18:02; Start 03/08/18 at 17:30 Famotidine (Pepcid) 20 mg BID PO Last administered on 03/08/18at 20:15; Start 03/08/18 at 21:00 Acetaminophen (Tylenol) 650 mg PRN Q6HRS PRN PO PAIN Last administered on 03/09at 03:17; Start 03/08/18 at 20:15 Nitroglycerin (Nitrostat) 0.4 mg PRN Q5MIN PRN SL CHEST PAIN Last administered on 03/09/18at 07:29; Start 03/09/18 at 07:30 Nitroglycerin (Nitrostat) 0.4 mg STK-MED ONCE SL ; Start 03/09/18 at 07:24; Stop 03/09/18 at 07:25; Status DC Vitals/I & O Vital Sign - Last 24 Hours 03/08/18 03/08/18 03/08/18 03/08/18 10:23 10:29 12:50 13:14 Temp 98.4 98.4 Pulse 101 Resp 18 18 18 B/P (MAP) 190/98 (128) 190/98 Pulse Ox 96 96 96 O2 Delivery Room Air Room Air Room Air 03/08/18 03/08/18 03/08/18 03/08/18 14:26 18:02 19:45 19:48 Temp 98.3 98.4 98.3 98.4 Pulse 112 104 Resp 20 20 B/P (MAP) 177/70 (105) 185/82 198/95 (129) Pulse Ox 98 96 O2 Delivery Room Air Room Air Room Air 03/08/18 03/08/18 03/09/18 03/09/18 20:16 23:10 03:05 07:29 Temp 98.8 99.1 98.8 99.1 Pulse 104 117 105 110 Resp 18 20 B/P (MAP) 198/95 153/70 (97) 149/67 (94) 152/73 Pulse Ox 99 97 O2 Delivery Room Air Room Air Intake and Output 03/08/18 03/08/18 03/09/18 15:01 23:01 07:01 Intake Total 480 ml Balance 480 ml VALORIE RMAOS MD Mar 09, 2018 08:04
[2018-03-09] MEDS ORDERED: REGADENOSON 0.4 MG/5 ML DISP.SYRIN. IV ONE (08:45)
[2018-03-09] MEDS: LISINOPRIL 10 MG TABLET PO SCH (09:00)
[2018-03-09] MEDS ORDERED: metroNIDAZOLE 0.75% VAGINAL 1 APP TUBE VG SCH (09:00)
[2018-03-09] MEDS ORDERED: LISI10TA2 PO (09:04)
[2018-03-09] MEDS ORDERED: METR70GE2 VG (09:04)
[2018-03-09] MEDS ORDERED: FAMO20TA5 PO (09:04)
--- NOTE | 2018-03-09 10:59 | PDOC ---
RAFFAELE COLLAZO APRN 03/09/18 1059: CARDIO Progress Notes Date and Time Date of Service 03/09/18 Time of Evaluation 1015 Subjective Subjective: No Chest Pain, No shortness of breath, Other (c/o lower back mann) Vitals Vitals Vital Signs Date Time Temp Pulse Resp B/P (MAP) Pulse Ox O2 Delivery O2 Flow Rate FiO2 03/09/18 07:30 98.2 101 32 150/68 (95) 97 Room Air 98.2 Weight Weight [ ] Input and Output Intake and Output Intake and Output 03/09/18 07:01 Intake Total 480 ml Balance 480 ml Intake Oral 480 ml Laboratory Labs Laboratory Tests Test 03/09/18 06:50 Magnesium Level 2.2 mg/dL (1.8-2.4) Triglycerides Level 69 mg/dL (0-150) Cholesterol Level 155 mg/dL (0-200) LDL Cholesterol, Calculated 87 mg/dL (0-100) VLDL Cholesterol, Calculated 14 mg/dL (0-40) Non-HDL Cholesterol Calculated 101 mg/dL (0-129) HDL Cholesterol 54 mg/dL (40-60) Cholesterol/HDL Ratio 2.9 Physical Exam HEENT: Neck Supple W Full Motion Chest: Symmetric LUNGS: Clear to Auscultation Heart: S1S2, RRR, no murmurs Abdomen: Soft N/T Extremities: No Edema Neurology: alert, oriented, follow commands Assessment Assessment 1. Chest/epigastric pain. Trop mildly elevated at 0.079- most probably type II, demand ischemia related to #2. Pain most probably GI related. 2. Accelerated hypertension; remains mildly elevated. 3. H/o ETOH and drug abuse Recommendations Repeat trop for downward trend MPI underway today. Add ASA Increase lisinopril for better BP control. NOAH CORONEL MD 03/09/18 1418: CARDIO Progress Notes Plan Plan Pt. seen, not examined. She was sleeping. Agree with above SUPPLY TECHNICIAN note. MPI negative. Ok to DC from CV standpoint. Thanks. RAFFAELE COLLAZO APRN Mar 09, 2018 10:59 NOAH CORONEL MD Mar 09, 2018 14:18
[2018-03-09 11:30] VITALS: BP 153/99
--- NOTE | 2018-03-09 13:38 | RAD ---
MR#: [id number] Date of Study: 03/09/2018 Ordering Physician: NELDIA LIM, Referring Physician: EARL ALEJO Tech: RT Yakelin Jacobs) (N) APPROVED REPORT Test Type: Pharmacological Stress Nurse/Tech: Ligia Guardado RN Test Indications: Chest pain, previous abnormal EKG Cardiac History: Hypertension,smoker Medications: See Electronic Medical Record Medical History: See Electronic Medical Record Resting ECG: SR with BBB Resting Heart Rate: 86 bpm Resting Blood Pressure: 151/84mmHg Pretest Chest Pain: No chest pain Nurse/Tech Notes S1,S2 and lungs are slightly diminished. Consent: The procedure was explained to the patient in lay terms. Informed consent was witnessed. Lyle eout was entered into [employer]. History and Stress Test performed by RT lAbert JacobsR) (N) Pharm. Details Pharmacologic stress testing was performed using 0.4mg per 5ml of regadenoson given intravenously ove r 7-10 seconds. Stress Symptoms Dyspnea,weird feeling,anxiety POST EXERCISE Reason for Termination: Infusion complete Target HR: No Max HR: 120 bpm Max Blood Pressure: 157/84mmHg Blood Pressure response to exercise: Normal blood pressure response during stress. Heart Rate response to exercise: WNL Chest Pain: Yes. rated it a 6/10 on the pain scale--midchest area Arrhythmia: No. ST Change: Yes. INTERPRETATION Stress EKG Conclusion: No evidence of stress induced EKG changes. Baseline EKG suggestive of LVH Imaging Protocol IMAGE PROTOCOL: Rest Tc-99m/stress Tc-99m 1 day Rest: Stress: Viability: Radiopharm.Tc99m [id number] Sestamibi Dose10.5mCi 33mCi Duration 13min. 13min. Img Date 03/09/2018 03/09/2018 Inj-Img [id number]. 60min. STRESS DATA End Diast. Vol.90.0mlLVEDV index BSA48.0ml End Syst. Vol.27.0mlLVESV index BSA14.0ml Myocardial Itcm953.0gEject. Qaztqqgn30.0% Stress Scores Regional WT2.00Summed WT15.00 Regional WM0.00Summed WM4.00 The rest and stress images show normal perfusion, normal contraction and thickening. LV Perf. Quant 17 Seg. SSS3.00 17 Seg. SRS1.00 17 Seg. SDS2.00 Stress Defect Extent (% LAD)0.00Rest Defect Extent (% LAD)0.00Rev. Defect Extent (% LAD)0.00 Stress Defect Extent (% LCX) 30.00Rest Defect Extent (% LCX)0.00Rev. Defect Extent (% LCX)13.80 Stress Defect Extent (% RCA)0.00Rest Defect Extent (% RCA)0.00Rev. Defect Extent (% RCA)0.00 Stress Defect Extent (% TIM)7.00Rest Defect Extent (% TIM)0.00Rev. Defect Extent (% TIM)2.80 Other Information Quality:Average Risk Assessment: Low Risk Conclusion 1. No evidence of EKG changes with stress testing. Baseline EKG consistent with LVH pattern. 2. Normal perfusion at stress/rest. 3. Low risk study. 4. EF > 60%. Signed by : Junior Roblero, Electronically Approved : 03/09/2018 13:36:45
[2018-03-09] MEDS ORDERED: ASPIRIN ENTERIC COATED 81 MG TABLET.DR. PO SCH (14:00)
--- NOTE | 2018-03-09 14:06 | PDOC3 ---
Discharge Summary Visit Information Date of Admission: Mar 07, 2018 Date of Discharge: Mar 09, 2018 Admitting Diagnosis: Chest pain Final Diagnosis Problems Medical Problems: (1) Chest pain Status: Acute (2) Hypertension Status: Acute Brief Hospital Course Allergies Allergies Coded Allergies Type Severity Reaction Last Updated Verified No Known Drug Allergies 03/07/18 No Vital Signs Vital Signs Date Time Temp Pulse Resp B/P (MAP) Pulse Ox O2 Delivery O2 Flow Rate FiO2 03/09/18 11:30 98.7 110 28 153/99 (117) 96 Room Air 98.7 Lab Results Laboratory Tests Test 03/07/18 15:18 03/07/18 19:48 03/07/18 23:00 03/08/18 04:30 Urine Collection Type Unknown Urine Color Yellow Urine Clarity Clear Urine pH 6.0 Urine Specific [place] 1.020 Urine Protein Negative mg/dL (NEG-TRACE) Urine Glucose (UA) Negative mg/dL (NEG) Urine Ketones (Stick) Negative mg/dL (NEG) Urine Blood Negative (NEG) Urine Nitrite Negative (NEG) Urine Bilirubin Negative (NEG) Urine Urobilinogen Dipstick 0.2 mg/dL (0.2 mg/dL) Urine Leukocyte Esterase Trace (NEG) Urine RBC 0 /HPF (0-2) Urine WBC 1-4 /HPF (0-4) Urine Squamous Epithelial Cells Mod /LPF Urine Bacteria Mod /HPF (0-FEW) Urine Mucus Mod /LPF Urine Trichomonas Present Troponin I Quantitative < 0.017 ng/mL (0.000-0.055) 0.079 ng/mL (0.000-0.055) White Blood Count 9.4 x10^3/uL (4.0-11.0) Red Blood Count 5.14 x10^6/uL (3.50-5.40) Hemoglobin 15.3 g/dL (12.0-15.5) Hematocrit 45.3 % (36.0-47.0) Mean Corpuscular Volume 88 fL (79-100) Mean Corpuscular Hemoglobin 30 pg (25-35) Mean Corpuscular Hemoglobin Concent 34 g/dL (31-37) Red Cell Distribution Width 13.5 % (11.5-14.5) Platelet Count 331 x10^3/uL (140-400) Neutrophils (%) (Auto) 63 % (31-73) Lymphocytes (%) (Auto) 28 % (24-48) Monocytes (%) (Auto) 6 % (0-9) Eosinophils (%) (Auto) 2 % (0-3) Basophils (%) (Auto) 1 % (0-3) Neutrophils # (Auto) 6.0 x10^3uL (1.8-7.7) Lymphocytes # (Auto) 2.6 x10^3/uL (1.0-4.8) Monocytes # (Auto) 0.6 x10^3/uL (0.0-1.1) Eosinophils # (Auto) 0.2 x10^3/uL (0.0-0.7) Basophils # (Auto) 0.1 x10^3/uL (0.0-0.2) Sodium Level 138 mmol/L (136-145) Potassium Level 3.5 mmol/L (3.5-5.1) Chloride Level 101 mmol/L (98-107) Carbon Dioxide Level 27 mmol/L (21-32) Anion Gap 10 (6-14) Blood Urea Nitrogen 14 mg/dL (7-20) Creatinine 1.0 mg/dL (0.6-1.0) Estimated GFR (Cockcroft-Gault) 59.7 Glucose Level 119 mg/dL (70-99) Calcium Level 9.0 mg/dL (8.5-10.1) Test 03/09/18 06:50 Magnesium Level 2.2 mg/dL (1.8-2.4) Triglycerides Level 69 mg/dL (0-150) Cholesterol Level 155 mg/dL (0-200) LDL Cholesterol, Calculated 87 mg/dL (0-100) VLDL Cholesterol, Calculated 14 mg/dL (0-40) Non-HDL Cholesterol Calculated 101 mg/dL (0-129) HDL Cholesterol 54 mg/dL (40-60) Cholesterol/HDL Ratio 2.9 Laboratory Tests Test 03/09/18 06:50 Magnesium Level 2.2 mg/dL (1.8-2.4) Triglycerides Level 69 mg/dL (0-150) Cholesterol Level 155 mg/dL (0-200) LDL Cholesterol, Calculated 87 mg/dL (0-100) VLDL Cholesterol, Calculated 14 mg/dL (0-40) Non-HDL Cholesterol Calculated 101 mg/dL (0-129) HDL Cholesterol 54 mg/dL (40-60) Cholesterol/HDL Ratio 2.9 Brief Hospital Course Ms Harvey is a pleasant 47-year-old female who is currently incarcerated. PMHx IVDA, ETOH abuse., smoker She presents with chest pain from the [facility], rated at 9 /10, worse with moving, better with sitting still. Found with SBP > 210mmHg, treated for HTN emergency and trichomas infection, found with enlarged liver with fatty infiltration on abdominal US. Seen by cardiology after troponin peak 0.79, went for negative MPI today. Seen and examined today. She is feeling a little better after pepcid. She is asking for a diet. Discharging back to incarceration with treatment script for trichomonas A/P: Trichomonas - metrogel vaginal Chest pain - atypical - will get MPI, treat as GERD otherwise Polysubstance abuse - counseled on cessation of ETOH, smoking, drug abuse Underwent myocardial perfusion imaging stress test: 1. No evidence of EKG changes with stress testing. Baseline EKG consistent with LVH pattern. 2. Normal perfusion at stress/rest. 3. Low risk study. 4. EF > 60%. Treated for GERD, anxiety and trichomonas, can d/c back to [facility]. Discharge Information Condition at Discharge: Improved Follow Up: Weeks (2) Disposition/Orders: D/C to Another Facility ([facility]) Scheduled Famotidine (Famotidine) 20 Mg Tablet, 20 MG PO BID for GERD for 30 Days, #60 Prescribed by: VALORIE RAMOS MD on 03/09/18903 Lisinopril (Lisinopril) 10 Mg Tablet, 10 MG PO DAILY for HTN for 30 Days, #30 Prescribed by: VALORIE RAMOS MD on 03/09/18903 Metronidazole (Metronidazole) 70 Gm Gel.w.appl, 1 ANDREEA VG BID for trichomonas for 7 Days, #14 Prescribed by: VALORIE RAMOS MD on 03/09/18903 VALORIE RAMOS MD Mar 09, 2018 14:06
--- NOTE | 2018-03-09 14:08 | DISCH ---
DISCHARGE WITH HOME HEALTH DISCHARGE INFORMATION: Discharge Date: Mar 09, 2018 Final Diagnosis: Problems Medical Problems: (1) Chest pain Status: Acute (2) Hypertension Status: Acute Trichomonas Condition on Discharge: Stable CODE STATUS: Code Status: Full HOME HEALTH: Face to Face: I certify this patient is under my care and that I, or a nurse practitioner or physician's special event assistant working with me, had a face to face encounter that meets the physician face to face encounter requirements with this patient on 03/09/18. Alf For: Medication Management POST DISCHARGE ORDERS: Activity Instructions for Disc: Resume previous activity Weight Bearing Status after Di: No restrictions DIET AFTER DISCHARGE: Regular TREATMENT/EQUIPMENT ORDERS: Adaptive Equipment Issued: None CERTIFICATION STATEMENT: Certification Statement: Certification Statement: Based on the above finding, I certify that this patient is confined to the home and needs intermittent long-term care, physical therapy and/or speech therapy, or continues to need occupational therapy.~ This patient is under my care, and I have initiated the establishment of the plan of care.~ This patient will be followed by myself or a community physician who will periodically review the plan of care. Home Meds Active Scripts Lisinopril (LISINOPRIL) 10 Mg Tablet, 10 MG PO DAILY for HTN for 30 Days, #30 TAB Prov:VALORIE RAMOS MD 03/09/18 Famotidine (FAMOTIDINE) 20 Mg Tablet, 20 MG PO BID for GERD for 30 Days, #60 TAB Prov:VALORIE RAMOS MD 03/09/18 Metronidazole (METRONIDAZOLE) 70 Gm Gel.w.appl, 1 ANDREEA VG BID for trichomonas for 7 Days, #14 EACH Prov:VALORIE RAMOS MD 03/09/18 VALORIE RAMOS MD Mar 09, 2018 14:08
[2018-03-09] MEDS: FAMOTIDINE 20 MG TABLET. PO SCH (14:23)
[2018-03-09 15:00] VITALS: BP 172/92
[2018-03-10] MEDS ORDERED: LISINOPRIL 10 MG TABLET PO SCH (09:00)
== END 2018-03-09 16:04 ==
LOC: ER 11:25 → 2 SOUTH 15:20 → EEVIPCON 15:20
PROVIDERS: ADMIT Internal Medicine; ATTEND Internal Medicine
DX: R07.89 Other chest pain (principal); I10 Essential (primary) hypertension; A59.9 Trichomoniasis, unspecified; F10.10 Alcohol abuse, uncomplicated; F17.200 Nicotine dependence, unspecified, uncomplicated; J44.9 Chronic obstructive pulmonary disease, unspecified; Z82.49 Family history of ischemic heart disease and other diseases of the circulatory system; Z87.11 Personal history of peptic ulcer disease
CPT/HCPCS: 36415; 71045; 76705; 78452; 80048; 80061; 80076; 81001; 83690; 83735; 83880; 84484; 85025; 93005; 93017; 96374; 96375; 96376; 99284; A9500; G0378; G0379; J0360; J2270; J2785; J3490